=== PATIENT | female | born 1990 | race Caucasian/White ===

== ENCOUNTER 2017-07-07 21:56 | Emergency (ER) | payer MEDICAID, OTHER ==
[~2017-07-07] VITALS: Ht 152.4 cm; Wt 59.5 kg
[2017-07-07 22:28] VITALS: Ht 152.4 cm; Wt 59.5 kg
--- NOTE | 2017-07-07 23:15 | ERD ---
ER Documentation Chief Complaint Chief Complaint BIB SELF FOR LEFT BREAST PAIN WITH GROWING MASS, SEEN BY PMD HPI This 26 YR female reports left breast pain and infection, s/p breast bioscopy in Feb/or Mar, pt reports that mas was benign, pt reports that current symptoms started 2 days ago redness and firmness around breast, pt went to clinic yesterday and was started on Keflex 5oomg QID, pt taking as directed , pain is worse today. increased redness, warmth and pain, denies any breast discharge, nipple discharge, any change in breast skin, denies seeing dimpling , patient reports that she does self breast examinations. ROS All systems reviewed and are negative except as per history of present illness. Allergies Allergies: Coded Allergies: No Known Allergy (Unverified , 07/07/17) PMhx/Soc Medical and Surgical Hx: pt denies Medical Hx, pt denies Surgical Hx Hx Alcohol Use: Yes (social) Hx Substance Use: No Hx Tobacco Use: No Smoking Status: Never smoker Physical Exam Vitals Vital Signs Date Time Temp Pulse Resp B/P Pulse Ox O2 Delivery O2 Flow Rate FiO2 07/07/17 22:28 98.2 89 18 126/81 100 Physical Exam Const: Well-nourished, well-hydrated, well-appearing 26-year-old female in no acute distress Resp: Clear to auscultation bilaterally Breast exam: Bilateral breasts symmetric, left breast erythremic, around the areola, nipple inverted, warm to touch, nonfluctuating firm plaque, no discharge with manual pressure Cardio: Regular rate and rhythm, no murmurs Abd: Soft, non tender, non distended. Normal bowel sound Neur: Awake and alert Psych: Normal Mood and Affect Results 24 hrs Current Medications Medications (Trade) Dose Ordered Sig/Raj Route PRN Reason Start Time Stop Time Status Last Admin Dose Admin Acetaminophen/ Hydrocodone Bitart ([place] (5/325)) 1 tab ONCE ONCE PO 07/07/17 23:30 07/07/17 23:31 DC 07/07/17 23:35 Clindamycin Phosphate (Cleocin) 600 mg ONCE ONCE IM 07/07/17 23:30 07/07/17 23:31 DC Procedures/MDM This 26-year-old female presents to emergency department for reevaluation of left breast pain. Patient has history of breast biopsy February or March, was told benign lesion, patient has developed a red erythremic breast around area M[place], denies any discharge. Reports was seen by clinic yesterday started on Keflex 500 mg 4 times daily, patient reports no improvement of symptoms. Emergency room course includes history and physical exam, exam findings support a breast cellulitis, I have no suspicion for a deep tissue abscess, patient is afebrile, plan to treat patient with 600 mg intramuscular clindamycin, discontinue Keflex, start clindamycin 300 mg 1 tab p.o. 4 times daily 10 days, patient receives [place] in emergency department for pain, plan to continue treatment as an outpatient along with ibuprofen, warm compresses, instructed to follow-up in emergency department in 48 hours for treatment reevaluation. Patient is stable with no new complaints during ER course, clinically there is no current evidence to suggest Mendieta-Pieter syndrome, deep tissue abscess, breast engorgement, mastodynia, breast trauma, fibroadenoma, fat necrosis, necrotizing fasciitis, or any other emergent condition appearing to require further evaluation or hospitalization. I feel the patient is stable for discharge at this time. I have discussed results, examination findings, the treatment plan with the patient and family present prior to discharge. Indications for emergent reevaluation, side effects of medication were also discussed. All questions were answered. Patient verbalizes understanding and agrees with plan of care. Departure Diagnosis: Primary Impression: Cellulitis of breast Condition: Good Patient Instructions: Breast Self-Exam (BSE), Cellulitis Additional Instructions: Thank you for for coming to [facility] for your care today. Please ask your nurse or provider if you have questions about your care today and do not leave until all your questions have been answered. Please use any medications given as directed and follow-up with your doctor (or the doctor you were referred to) in the next 2-3 days. If you do not have a primary care doctor you may follow up at the [facility] (listed below). You may also use motrin and tylenol as needed for fever and/or pain unless instructed otherwise by your provider or nurse. Indications for more urgent follow-up have been discussed, but you may return to the Emergency Department at ANY time for any worrisome or worsening symptoms. If you have abdominal pain, please know that no test or exam you received is perfect and you should follow up within 8 hours for continued pain. If you had any imaging studies today, such as an X-Ray or CT Scan, these studies will be reviewed later by a radiologist. You will be called if there are important findings that were not identified today, so make sure the contact information you provided at registration is correct. If you received any narcotic pain control medicine today, such as Vicodin, Morphine or Dilaudid, your coordination and judgment may be affected for a number of hours. Please do not drive or operate heavy machinery, and you may want someone to assist you at home. If you were given a prescription for narcotic medication, be aware that it is very addictive- use sparingly and only if necessary. MARIANNE SEGAL Jul 07, 2017 23:15
[2017-07-07] MEDS ORDERED: CLINDAMYCIN 300 MG INJ IM ONE (23:30)
[2017-07-07] MEDS ORDERED: HYDROCODONE/APAP (5/325) TAB PO ONE (23:30)
[2017-07-08] MEDS ORDERED: CLIN-73 PO (00:14)
[2017-07-08] MEDS ORDERED: HYDR-906 PO (00:14)
[2017-07-08] MEDS ORDERED: IBUP-1542 PO (00:14)
== END 2017-07-08 01:25 | disposition home or self-care (01) ==
LOC: FTE 21:56
DX: N61.0 Mastitis without abscess (principal)
CPT/HCPCS: 96372; Z7502; Z7610

== ENCOUNTER 2017-07-13 20:47 | Inpatient (IN) | END 2017-07-26 14:49 | disposition home or self-care (01) | DRG 601 ==

== ENCOUNTER 2017-07-30 18:59 | Emergency (ER) | END 2017-07-30 21:00 | disposition home or self-care (01) ==